=== PATIENT | female | born 1970 | race Caucasian/White ===

== ENCOUNTER → 2020-09-24 15:00 | Outpatient (CLI) | payer BC, SELFPAY ==
--- NOTE | ~2020-09-24 | MR_ITS ---
EXAMINATION: MR pelvis wo/w con INDICATION: Abnormal uterine bleeding TECHNIQUE: Coronal SSFSE ARC, Coronal, Axial, and Sagittal T2 FRFSE small [id number], Coronal 2D F IESTA FatSat, Axial SSFSE BH ARC, Axial 3D DualEcho BH, Axial STIR, Axial DWI b=500, pre and dynamic postcontrast Axial LAVA ARC COMPARISON: None available CONTRAST: Multihance, 12 cc FINDINGS: There is a 4.5 x 4.3 cm T1 isointense, T2 hypointense submucosal mass of the right uterine body which exerts mass effect on the endometrial complex. The mass demonstrates heterogeneous enhance ment after contrast administration. A 6 mm intramural mass in the uterine fundus and an 11 mm intramu ral mass of the left uterine body has similar MR features. Nabothian cysts of the cervix measure up t o 10 mm. There are no pathologically enlarged pelvic lymph nodes. No dilated loops of bowel are prese nt. The bladder is unremarkable. Mild lumbar spondylosis is noted. There is no abnormal restricted di ffusion. IMPRESSION: 1. Uterine fibroids including a 4.5 cm submucosal fibroid of the right uterine body which exerts mass effect on the endometrial complex. Reviewed, dictated and finalized at location A. [employer]
[2020-09-24 15:23] LABS: Estimated Glomerular Filt Rate > 60
== END ==
PROVIDERS: Visit Provider Nurse Practitioner Women's Health
DX: N93.9 Abnormal uterine and vaginal bleeding, unspecified (principal); D25.9 Leiomyoma of uterus, unspecified
CPT/HCPCS: 72197; A9577